=== PATIENT | male | born 1985 | race Hispanic/Latino ===

== ENCOUNTER 2017-06-25 13:50 | Emergency (ER) | payer OTHER ==
[~2017-06-25] VITALS: Ht 165.1 cm; Wt 77.6 kg
[2017-06-25] MEDS ORDERED: TETANUS/DIPHTHERIA TOX ADULT 0.5 ML SYR IM ONE (14:15)
--- NOTE | 2017-06-25 14:33 | Diagnostic Imaging Report ---
PROCEDURE:HAND RIGHT 3 VIEWS AP \T\ LAT COMPARISON:None. INDICATIONS:LACERATION TO RIGHT HAND FINDINGS: There are no fractures, dislocations, lytic or blastic lesions. No radiopaque foreign bodies. The bones are well-mineralized. The soft-tissues are unremarkable. CONCLUSION: No fracture or radiopaque foreign bodies. Dictated by: Jonathan Man M.D. on 06/25/2017 at 14:41 Electronically approved by: Jonathan Man M.D. on 06/25/2017 at 14:41
[2017-06-25] MEDS ORDERED: LIDOCAINE HCL 1% LOCAL INJ 20 ML VIAL ONE (14:58)
== END 2017-06-25 15:47 | disposition home or self-care (01) ==
LOC: ER 13:50
DX: M79.641 Pain in right hand (principal); S61.411A Laceration without foreign body of right hand, initial encounter; W25.XXXA Contact with sharp glass, initial encounter
CPT/HCPCS: 12001; 73130; 90471; 90714; 99283; J2001